=== PATIENT | male | born 1960 | race African-American/Black ===

== ENCOUNTER 2019-04-05 16:08 | Inpatient (IN) ==
[2019-04-05] MEDS ORDERED: MORPHINE 4 MG/1 ML VIAL IV PRN (18:51)
[2019-04-05] MEDS ORDERED: ACETAMINOPHEN 325 MG TABLET PO PRN (18:51)
[2019-04-05 19:42] LABS: Basophils % 0.3 % (0.0-0.8); Eosinophils # 0.1 10*3/uL (0.0-0.87); Eosinophils % 1.7 % (0.00-10.9); Hematocrit 44.1 VOL% (42.0-52.0); Hemoglobin 14.1 GM/DL (14.0-18.0); Immature Granulocytes % 0.3 %; Immature Granulocytes Absolute 0.02 #; Lymphocytes # 1.3 10*3/uL (1.4-4.0); Lymphocytes % 20.9 % (21.2-54.2); Mean Corpuscular Volume 89.5 FL (87-102); Mean Platelet Volume 10.3 FL (9.6-12.0); Monocytes % 9.7 % (1.7-12.7); Neutrophils % 67.1 % (38.7-73.9); Platelet Count 229 T/CUMM (130-400); Red Blood Count 4.93 MC/CUMM (3.8-5.5); Red Cell Distribution Width 14.6 % (9.3-17.3); White Blood Count 6.4 T/CUMM (4-12)
[2019-04-05 19:59] LABS: CKMB % 2.7 %
[2019-04-05 20:04] LABS: Troponin I 2.97 NG/ML (0.00-0.045)
[2019-04-05 20:39] LABS: Calcium 8.9 MG/DL (8.5-10.1); Osmolality,Calculated 283.5 MOS/KG (273-304)
[2019-04-05] MEDS: ACETYLCYSTEINE 600 MG CAPSULE PO SCH (20:49)
[2019-04-05] MEDS: ALLOPURINOL 300 MG TABLET PO SCH (20:49)
[2019-04-05] MEDS: TERAZOSIN 5 MG CAPSULE PO SCH (20:49)
[2019-04-05] MEDS: ATORVASTATIN 80 MG TABLET PO SCH (20:49)
[2019-04-05] MEDS: SODIUM CHLORIDE 0.9% 1,000 ML IV SCH (20:50)
[2019-04-05] MEDS ORDERED: METOPROLOL TARTRATE 50 MG TABLET PO SCH (21:00)
[2019-04-06] MEDS: SODIUM CHLORIDE 0.9% 1,000 ML IV SCH ×3 (04:28→20:48)
[2019-04-06 06:17] LABS: Calcium 8.8 MG/DL (8.5-10.1); Osmolality,Calculated 285.3 MOS/KG (273-304)
[2019-04-06 06:31] LABS: CKMB % 5.9 %
[2019-04-06 06:34] LABS: Troponin I 29.3 NG/ML (0.00-0.045)
[2019-04-06] MEDS ORDERED: DIAZEPAM 5 MG TABLET PO ONE (08:00)
[2019-04-06] MEDS ORDERED: MAGNESIUM SULF RIDER 2 GM in PREMIX 1 EACH IV PRN (08:00)
[2019-04-06] MEDS ORDERED: POTASSIUM CHLORIDE RIDER 10 MEQ in PREMIX 1 EACH IV PRN (08:00)
[2019-04-06] MEDS ORDERED: diphenhydrAMINE CAP 25 MG CAPSULE PO ONE (08:00)
[2019-04-06] MEDS: ACETYLCYSTEINE 600 MG CAPSULE PO SCH ×2 (08:07→20:47)
[2019-04-06] MEDS: NEBIVOLOL 10 MG TABLET PO SCH (08:08)
[2019-04-06] MEDS: amLODIPine 10 MG TABLET PO SCH (08:08)
[2019-04-06] MEDS: PANTOPRAZOLE 40 MG TABLET PO SCH (08:08)
[2019-04-06] MEDS: SPIRONOLACTONE 50 MG TABLET PO SCH (08:08)
[2019-04-06 08:13] LABS: Risk Ratio 6.38; VLDL CHOLESTEROL 33.6 MG/DL
[2019-04-06] MEDS ORDERED: LIDOCAINE 1% 20 ML VIAL ONE (08:30)
[2019-04-06] MEDS ORDERED: fentaNYL 100 MCG/2 ML VIAL ONE (08:48)
[2019-04-06] MEDS ORDERED: MIDAZOLAM 2 MG/2 ML VIAL ONE ×2 (08:48→10:01)
[2019-04-06] MEDS ORDERED: ASPIRIN 325 MG TABLET PO SCH (09:00)
[2019-04-06] MEDS ORDERED: TIROFIBAN 5,000 MCG/100 ML PREMIX IV ONE (09:11)
[2019-04-06] MEDS ORDERED: ENOXAPARIN 60 MG/0.6 ML SYRINGE ONE (09:20)
[2019-04-06] MEDS ORDERED: TICAGRELOR 90 MG TABLET ONE (10:12)
[2019-04-06] MEDS ORDERED: ENOXAPARIN 150 MG/ML SYRINGE SUBCUT SCH (16:00)
[2019-04-06] MEDS: TICAGRELOR 90 MG TABLET PO SCH (20:47)
[2019-04-06] MEDS: ALLOPURINOL 300 MG TABLET PO SCH (20:47)
[2019-04-06] MEDS: TERAZOSIN 5 MG CAPSULE PO SCH (20:47)
[2019-04-06] MEDS: ATORVASTATIN 80 MG TABLET PO SCH (20:47)
[2019-04-07 03:27] LABS: Basophils % 0.4 % (0.0-0.8); Eosinophils # 0.2 10*3/uL (0.0-0.87); Eosinophils % 2.8 % (0.00-10.9); Hematocrit 40.7 VOL% (42.0-52.0); Hemoglobin 12.8 GM/DL (14.0-18.0); Immature Granulocytes % 0.4 %; Immature Granulocytes Absolute 0.03 #; Lymphocytes # 1.7 10*3/uL (1.4-4.0); Lymphocytes % 22.7 % (21.2-54.2); Mean Corpuscular HGB Conc 31.4 GM/DL (32-36); Mean Corpuscular Volume 89.5 FL (87-102); Mean Platelet Volume 11.2 FL (9.6-12.0); Monocytes % 13.3 % (1.7-12.7); Neutrophils % 60.4 % (38.7-73.9); Platelet Count 251 T/CUMM (130-400); Red Blood Count 4.55 MC/CUMM (3.8-5.5); Red Cell Distribution Width 14.6 % (9.3-17.3); White Blood Count 7.3 T/CUMM (4-12)
[2019-04-07 03:36] LABS: Calcium 8.3 MG/DL (8.5-10.1); Osmolality,Calculated 286.1 MOS/KG (273-304)
[2019-04-07] MEDS: SODIUM CHLORIDE 0.9% 1,000 ML IV SCH (05:33)
[2019-04-07] MEDS: TICAGRELOR 90 MG TABLET PO SCH ×2 (09:03→20:58)
[2019-04-07] MEDS: SPIRONOLACTONE 50 MG TABLET PO SCH (09:03)
[2019-04-07] MEDS: NEBIVOLOL 10 MG TABLET PO SCH (09:03)
[2019-04-07] MEDS: amLODIPine 10 MG TABLET PO SCH (09:03)
[2019-04-07] MEDS: ACETYLCYSTEINE 600 MG CAPSULE PO SCH ×2 (09:03→20:58)
[2019-04-07] MEDS: ASPIRIN EC 81 MG TABLET PO SCH (09:04)
[2019-04-07] MEDS: PANTOPRAZOLE 40 MG TABLET PO SCH (09:04)
[2019-04-07] MEDS: TERAZOSIN 5 MG CAPSULE PO SCH (20:58)
[2019-04-07] MEDS: ATORVASTATIN 80 MG TABLET PO SCH (20:59)
[2019-04-07] MEDS: ALLOPURINOL 300 MG TABLET PO SCH (20:59)
[2019-04-08 05:05] LABS: Basophils % 0.4 % (0.0-0.8); Eosinophils # 0.3 10*3/uL (0.0-0.87); Eosinophils % 3.9 % (0.00-10.9); Hematocrit 41.1 VOL% (42.0-52.0); Immature Granulocytes % 0.3 %; Immature Granulocytes Absolute 0.02 #; Lymphocytes # 1.7 10*3/uL (1.4-4.0); Lymphocytes % 25.9 % (21.2-54.2); Mean Corpuscular HGB Conc 31.6 GM/DL (32-36); Mean Corpuscular Volume 89.5 FL (87-102); Mean Platelet Volume 10.6 FL (9.6-12.0); Neutrophils % 58.5 % (38.7-73.9); Platelet Count 244 T/CUMM (130-400); Red Blood Count 4.59 MC/CUMM (3.8-5.5); Red Cell Distribution Width 14.8 % (9.3-17.3); White Blood Count 6.7 T/CUMM (4-12)
[2019-04-08 05:28] LABS: Calcium 8.7 MG/DL (8.5-10.1); Osmolality,Calculated 288.1 MOS/KG (273-304)
[2019-04-08 08:02] VITALS: BP 134/78
[2019-04-08] MEDS: ASPIRIN EC 81 MG TABLET PO SCH (08:34)
[2019-04-08] MEDS: TICAGRELOR 90 MG TABLET PO SCH (08:34)
[2019-04-08] MEDS: NEBIVOLOL 10 MG TABLET PO SCH (08:34)
[2019-04-08] MEDS: SPIRONOLACTONE 50 MG TABLET PO SCH (08:34)
[2019-04-08] MEDS: ACETYLCYSTEINE 600 MG CAPSULE PO SCH (08:34)
[2019-04-08] MEDS: amLODIPine 10 MG TABLET PO SCH (08:35)
[2019-04-08] MEDS: PANTOPRAZOLE 40 MG TABLET PO SCH (08:37)
== END 2019-04-08 11:56 | disposition home or self-care (01) | DRG 247 ==
LOC: N.TELES → SUATTDRO 17:41
PROVIDERS: ADMIT Internal Medicine
PROC: CLCCHCL (ICD-10-PCS; 2019-04-06 09:15)